=== PATIENT | female | born 1945 ===

== ENCOUNTER 2018-01-24 20:24 | Emergency (ER) | payer MEDICAID ==
[2018-01-24 20:31] VITALS: RESP 20
--- NOTE | 2018-01-24 20:47 | C.PDOC ---
History Of Present Illness 72 y/o female with a PMHx of HTN, presents to the ED complaining of left knee and ankle pain after slip and fall yesterday. No head injury or LOC. Otherwise patient denies any chest pain, SOB, abdominal pain, numbness, tingling, weakness, or other injuries. Time Seen by Provider: 01/24/18 20:36 Chief Complaint (Nursing): Lower Extremity Problem/Injury History Per: Patient History/Exam Limitations: no limitations Onset/Duration Of Symptoms: Days Current Symptoms Are (Timing): Still Present - Knee Description Of Injury: Fell - Ankle/Foot Description Of Injury: Fell Past Medical History Reviewed: Historical Data, Nursing Documentation, Vital Signs Vital Signs: Last Vital Signs Temp 98.3 F 01/24/18 20:25 Pulse 87 01/24/18 20:25 Resp 20 01/24/18 20:25 BP 193/95 H 01/24/18 20:25 Pulse Ox 99 01/24/18 20:25 - Medical History PMH: Diabetes, HTN Surgical History: No Surg Hx Family History: States: No Known Family Hx - Social History Hx Tobacco Use: No Hx Alcohol Use: No Hx Substance Use: No - Immunization History Hx Tetanus Toxoid Vaccination: No Hx Influenza Vaccination: No Hx Pneumococcal Vaccination: No Review Of Systems Constitutional: Negative for: Fever Eyes: Negative for: Vision Change Cardiovascular: Negative for: Chest Pain, Palpitations Respiratory: Negative for: Shortness of Breath Gastrointestinal: Negative for: Vomiting, Abdominal Pain Musculoskeletal: Positive for: Leg Pain (left knee and ankle pain). Negative for: Back Pain Skin: Negative for: Lesions, Bruising Neurological: Negative for: Weakness, Numbness, Incoordination, Other (head trauma/LOC) Physical Exam - Physical Exam Appears: Well, Non-toxic, No Acute Distress Skin: Warm, Dry Head: Atraumatic, Normacephalic Eye(s): bilateral: Normal Inspection Neck: Normal ROM Chest: Symmetrical Cardiovascular: Rhythm Regular, No Murmur Respiratory: Normal Breath Sounds, No Accessory Muscle Use, No Rhonchi, No Wheezing Extremity: Tenderness (to the left ankle and left knee; no left hip tenderness), Capillary Refill (less than 2 sec), No Deformity, Swelling (to the left ankle and left knee) Pulses: Left Dorsalis Pedis: Normal, Right Dorsalis Pedis: Normal Neurological/Psych: Oriented x3, Normal Speech, Normal Motor, Normal Sensation ED Course And Treatment O2 Sat by Pulse Oximetry: 99 (RA) Pulse Ox Interpretation: Normal Medical Decision Making Medical Decision Making: Impression: Left knee and ankle injuries s/p fall Initial Plan: --Left ankle x-ray --Left foot x-ray --Left knee x-ray --Tylenol 975 mg PO Progress/Updates: All x-rays reviewed by me, and are negative.ankle air cast applied by tech. Patient is stable for discharge home. Counseled regarding diagnosis and follow up instructions. Disposition - Disposition Referrals: [facility] [Outside] [facility] [Outside] [facility] [Outside] Disposition: HOME/ ROUTINE Disposition Time: 22:00 Condition: STABLE Additional Instructions: return to er with worsening symptoms or concenrs. you may need further diagnostic testing as an outpatient Prescriptions: RX: Naproxen 500 mg PO BID PRN #20 tab PRN Reason: Pain, Mild (1-3) Instructions: Ankle Sprain (DC), Knee Sprain (DC) Forms: [employer] (Citizen [place]) - Clinical Impression Clinical Impression: Ankle sprain, Knee sprain - Scribe Statement The provider has reviewed the documentation as recorded by the Scribe (Louise Wood) Provider Attestation: All medical record entries made by the Scribe were at my direction and personally dictated by me. I have reviewed the chart and agree that the record accurately reflects my personal performance of the history, physical exam, medical decision making, and the department course for this patient. I have also personally directed, reviewed, and agree with the discharge instructions and disposition.
[2018-01-24 22:23] VITALS: BP 170/79; PULSE 82; TEMP 99.1
[2018-01-25 05:47] VITALS: O2SAT 99
--- NOTE | 2018-01-25 08:42 | RAD ---
Date of service: 01/24/2018 PROCEDURE: Left Foot Radiographs. HISTORY: trauma COMPARISON: None. FINDINGS: BONES: No acute fracture. Slight deformity distal 5th metatarsal possibly relating to remote trauma no acute fracture here suspect. Inferior calcaneal spur.. Jon's tendon insetional enesthesophyte. JOINTS: No dislocation. Multifocal osteoarthrosis present. SOFT TISSUES: Normal. OTHER FINDINGS: None. IMPRESSION: No acute fracture appreciated. Other findings as above.
--- NOTE | 2018-01-25 08:51 | RAD ---
Date of service: 01/24/2018 PROCEDURE: Left Ankle Radiographs. HISTORY: trauma COMPARISON: None FINDINGS: BONES: Tiny ossifications/cortical irregularities border the inferior lateral malleolus/inferior distal fibula with marked overlying soft tissue swelling here. Chip fractures here multiple and/or ossific debris with superimposed acute trauma here considerations. One discrete fracture fragment greater than 4 mm in size is perceived. Clinical correlation with the on the specifics is recommended. Lateral talar spurring present. Inferior calcaneal spur . Lufkin's tendon insetional enesthesophyte. JOINTS: Talofibular arthrosis.. Ankle mortise maintained. Talar dome intact SOFT TISSUES: Marked soft tissue swelling over the inferior lateral malleolus. Subcutaneous reticulated edema present. OTHER FINDINGS: None. IMPRESSION: Marked soft tissue swelling-over inferior lateral malleolus. There are multiple tiny 1 to 3 mm ossifications bordering the inferior lateral malleolus/inferior distal fibula here. A blunt crush type injury could result in multiple tiny cortical chip fracture fragments here. No larger fracture fragment greater than 4 mm in size is needed. Clinical correlation is needed. Comments: Study marked for PA review .
--- NOTE | 2018-01-25 08:54 | RAD ---
Date of service: 01/24/2018 PROCEDURE: Left Knee Radiographs. HISTORY: Pain. COMPARISON: None. FINDINGS: BONES: No fracture appreciated JOINTS: Tricompartmental osteoarthrosis. Tibiofibular arthrosis JOINT EFFUSION: Small effusion present. OTHER FINDINGS: Quadriceps insertional enthesophyte IMPRESSION: No fracture appreciated. Arthrosis
== END 2018-01-24 22:30 | disposition home or self-care (01) ==
LOC: C.ER 20:24
DX: S83.92XA Sprain of unspecified site of left knee, initial encounter (principal); S93.402A Sprain of unspecified ligament of left ankle, initial encounter; W01.0XXA Fall on same level from slipping, tripping and stumbling without subsequent striking against object, initial encounter; Y92.9 Unspecified place or not applicable